=== PATIENT | male | born 1995 | race African-American/Black ===

== ENCOUNTER 2018-01-26 21:21 | Inpatient (IN) | payer OTHER ==
[2018-01-26] MEDS ORDERED: ACETAMINOPHEN 325 MG TAB PO (23:00)
[2018-01-26] MEDS ORDERED: NACL 0.9% 3 ML SYG IV (23:00)
[2018-01-26 23:59] LABS: ADD MAN DIFF? NO
[2018-01-27] LABS: WHITE BLOOD COUNT 5.2 10^3/ul (4.8-10.8)
[2018-01-27] LABS: BASOPHILS % 0.4 % (0.0-2.0); EOSINOPHILS % 0.2 % (0.0-7.0); HEMATOCRIT 40.2 % (42.0-52.0); HEMOGLOBIN 13.2 g/dl (14.0-18.0); LYMPHOCYTES # 2.3 10^3/ul (0.8-2.9); LYMPHOCYTES % 45.2 % (18.0-55.0); MEAN CORPUSCULAR HEMOGLOBIN 27.7 pg (29.0-33.0); MEAN CORPUSCULAR HGB CONC 32.8 g/dl (32.0-37.0); MEAN CORPUSCULAR VOLUME 84.5 fl (72.0-104.0); MEAN PLATELET VOLUME 10.4 fl (7.4-10.4); MONOCYTE # 0.6 10^3/ul (0.3-0.9); MONOCYTES % 11.5 % (0.0-13.0); NEUTROPHIL # 2.2 10^3/ul (1.6-7.5); NEUTROPHILS % 42.5 % (30.0-74.0); PLATELET COUNT 159 10^3/UL (140-415); RED BLOOD COUNT 4.76 10^6/ul (4.70-6.10)
[2018-01-27] MEDS: PANTOPRAZOLE 40 MG INJ IV ×2 (00:17→06:03)
[2018-01-27] MEDS: SOD CHLORIDE 0.9% 1,000 ML IV ×3 (00:18→12:21)
[2018-01-27] MEDS: morphine 2 MG INJ IV ×2 (00:18→04:43)
[2018-01-27 00:21] LABS: HEMOGLOBIN A1C 5.6 % (0-5.9)
[2018-01-27 00:28] LABS: ALANINE AMINOTRANSFERASE 26 IU/L (13-69); ALBUMIN 3.8 g/dl (3.3-4.9); ALBUMIN/GLOBULIN RATIO 1.02; ALKALINE PHOSPHATASE 69 IU/L (42-121); ANION GAP 12 (8-16); ASPARTATE AMINO TRANSFERASE 37 IU/L (15-46); BILIRUBIN,INDIRECT 0.5 mg/dl (0-1.1); BILIRUBIN,TOTAL 0.5 mg/dl (0.2-1.3); BLOOD UREA NITROGEN 13 mg/dl (7-20); CALCIUM 8.1 mg/dl (8.4-10.2); CARBON DIOXIDE 27 mmol/L (21-31); CHLORIDE 101 mmol/L (97-110); CHOL/HDL RATIO 3.2 RATIO; CHOLESTEROL 112 mg/dl (100-200); CREATININE 1.21 mg/dl (0.61-1.24); GLUCOSE 97 mg/dl (70-220); HDL CHOLESTEROL 34 mg/dl (30-63); LDL CHOLESTEROL,CALCULATED 58 mg/dl; MAGNESIUM 1.9 mg/dl (1.7-2.5); POTASSIUM 4.2 mmol/L (3.5-5.1); SODIUM 136 mmol/L (135-144); TOTAL PROTEIN 7.5 g/dl (6.1-8.1); TRIGLYCERIDES 99 mg/dl (0-149)
[2018-01-27 00:51] LABS: THYROID STIMULATING HORMONE 0.721 MIU/L (0.465-4.680)
[2018-01-27] MEDS: ONDANSETRON 4 MG INJ IV (04:43)
[2018-01-27] MEDS ORDERED: ACETAMINOPHEN 1000MG/100ML IV 100 ML IVPB (06:00)
[2018-01-27] MEDS: PIPER-TAZO 3.375 GM IV (PMX) 100 ML IVPB ×3 (06:09→20:50)
[2018-01-27] MEDS: ELVITEG/COBI/EMTRIC/TENOFO ALA 1 EACH TABLET PO (10:27)
[2018-01-27 12:11] LABS: ADD MAN DIFF? NO
[2018-01-27 12:28] LABS: BASOPHILS % 0.3 % (0.0-2.0); HEMATOCRIT 41.6 % (42.0-52.0); HEMOGLOBIN 13.3 g/dl (14.0-18.0); LYMPHOCYTES # 1.7 10^3/ul (0.8-2.9); MEAN CORPUSCULAR HEMOGLOBIN 26.8 pg (29.0-33.0); MEAN CORPUSCULAR VOLUME 83.7 fl (72.0-104.0); MEAN PLATELET VOLUME 10.5 fl (7.4-10.4); MONOCYTE # 0.3 10^3/ul (0.3-0.9); NEUTROPHIL # 1.3 10^3/ul (1.6-7.5); NEUTROPHILS % 39.4 % (30.0-74.0); PLATELET COUNT 179 10^3/UL (140-415); RED BLOOD COUNT 4.97 10^6/ul (4.70-6.10); RED CELL DISTRIBUTION WIDTH 15.3 % (11.5-14.5)
[2018-01-27 12:28] LABS: WHITE BLOOD COUNT 3.3 10^3/ul (4.8-10.8)
[2018-01-27] MEDS: PEG/ELECTROLYTES 4L BTL PO (14:52)
[2018-01-27] MEDS: LIDOCAINE 100 MG SYRINGE (18:29)
[2018-01-27] MEDS: FENTAnyl 50 MCG/ML VIAL (18:30)
[2018-01-27] MEDS: PANTOPRAZOLE IV 80 MG in SOD CHLORIDE 0.9% 100 ML IV (18:54)
[2018-01-28] MEDS ORDERED: PANTOPRAZOLE (EC) 40 MG TAB PO (06:00)
[2018-01-29 15:51] LABS: LYMPHOCYTE - % CD4 (HELPER) 11 % (30-61); LYMPHOCYTE - %CD8 (SUPPRESSOR) 69 % (12-42); LYMPHOCYTE - ABSOLUTE 1718 cells/uL (850-3900); LYMPHOCYTE - ABSOLUTE CD4 187 cells/uL (490-1740); LYMPHOCYTE - ABSOLUTE CD8 1191 cells/uL (180-1170); LYMPHOCYTE - CD4/CD8 RATIO 0.16 (0.86-5.00)
== END 2018-01-27 22:40 | disposition left against medical advice (07) | DRG 391 ==
LOC: TEL 21:21
PROC: 0DD68ZX Extraction of Stomach, Via Natural or Artificial Opening Endoscopic, Diagnostic (ICD-10-PCS; principal; 2018-01-27 17:30)
DX: K29.70 Gastritis, unspecified, without bleeding (principal); B20 Human immunodeficiency virus [HIV] disease; K21.9 Gastro-esophageal reflux disease without esophagitis; K29.80 Duodenitis without bleeding; R50.9 Fever, unspecified; B19.20 Unspecified viral hepatitis C without hepatic coma
CPT/HCPCS: 80053; 80061; 83036; 83735; 84443; 85025; 86360; 87536; 88305; 88312